=== PATIENT | male | born 1995 | race African-American/Black ===

== ENCOUNTER 2017-10-21 22:41 | Emergency (ER) | payer OTHER, SELFPAY ==
[2017-10-21] MEDS ORDERED: Ibuprofen 800 MG TAB ONE (23:04)
== END 2017-10-21 23:15 | disposition home or self-care (01) ==
LOC: ERS 22:41
DX: R51 Headache (principal); J45.909 Unspecified asthma, uncomplicated; F17.210 Nicotine dependence, cigarettes, uncomplicated
CPT/HCPCS: 99283

== ENCOUNTER 2017-11-18 16:34 | Emergency (ER) | payer SELFPAY ==
--- NOTE | 2017-11-18 17:01 | RAD ---
RIGHT HAND THREE VIEWS: 11/18/17 HISTORY: Slammed hand in door two hours ago. COMPARISON: 03/10/16. FINDINGS: No fracture. No cortical irregularity. No periosteal reaction. IMPRESSION: No fracture. POS: [id number]
== END 2017-11-18 17:34 | disposition home or self-care (01) ==
LOC: ERS 16:34
DX: S60.221A Contusion of right hand, initial encounter (principal); F17.210 Nicotine dependence, cigarettes, uncomplicated; W22.8XXA Striking against or struck by other objects, initial encounter

== ENCOUNTER 2017-12-06 20:56 | Emergency (ER) | payer SELFPAY ==
[2017-12-06] MEDS ORDERED: Ketorolac Tromethamine 30 MG/ML VIAL ONE (21:45)
== END 2017-12-06 22:05 | disposition home or self-care (01) ==
LOC: ERS 20:56
DX: K01.1 Impacted teeth (principal); K02.9 Dental caries, unspecified; F17.210 Nicotine dependence, cigarettes, uncomplicated
CPT/HCPCS: 96372; J1885

== ENCOUNTER 2017-12-15 12:59 | Emergency (ER) | payer SELFPAY | END 2017-12-15 14:43 | disposition home or self-care (01) | LOC: SCSER 12:59 | DX: M54.5 Low back pain (principal); F17.210 Nicotine dependence, cigarettes, uncomplicated | CPT/HCPCS: 99283 ==

== ENCOUNTER 2018-05-14 02:27 | Emergency (ER) | payer SELFPAY | END 2018-05-14 02:49 | disposition home or self-care (01) | LOC: ERS 02:27 | DX: M54.5 Low back pain (principal); F17.210 Nicotine dependence, cigarettes, uncomplicated | CPT/HCPCS: 99283 ==

== ENCOUNTER 2018-07-21 19:32 | Emergency (ER) | payer BC, SELFPAY | END 2018-07-21 22:05 | disposition home or self-care (01) | LOC: ERS 19:32 | DX: B34.9 Viral infection, unspecified (principal); F17.210 Nicotine dependence, cigarettes, uncomplicated | CPT/HCPCS: 87804; 99283 ==

== ENCOUNTER 2020-07-07 15:32 | Emergency (ER) | payer SELFPAY | END 2020-07-07 16:31 | disposition home or self-care (01) | LOC: ERS 15:32 | DX: L73.9 Follicular disorder, unspecified (principal); F17.210 Nicotine dependence, cigarettes, uncomplicated ==

== ENCOUNTER 2020-12-27 16:44 | Emergency (ER) | payer SELFPAY ==
[2020-12-27 23:42] LABS: SARS-CoV-2 PCR by NAA Not Detected (NotDetected)
== END 2020-12-27 17:45 | disposition home or self-care (01) ==
LOC: ERS 16:44
DX: J02.9 Acute pharyngitis, unspecified (principal); R19.7 Diarrhea, unspecified; R53.83 Other fatigue; Z20.822 Contact with and (suspected) exposure to COVID-19; F17.200 Nicotine dependence, unspecified, uncomplicated
CPT/HCPCS: 99284; U0003; U0005

== ENCOUNTER 2021-10-11 17:38 | Emergency (ER) | payer SELFPAY ==
[2021-10-11] MEDS ORDERED: Boostrix 0.5 ML (Tdap) VIAL ONE (20:24)
== END 2021-10-11 20:49 | disposition home or self-care (01) ==
LOC: ERS 17:38
DX: S61.012A Laceration without foreign body of left thumb without damage to nail, initial encounter (principal); F17.200 Nicotine dependence, unspecified, uncomplicated; Z23 Encounter for immunization; W26.8XXA Contact with other sharp object(s), not elsewhere classified, initial encounter
CPT/HCPCS: 12001; 90471; 90715